=== PATIENT | female | born 1980 ===

== ENCOUNTER 2021-06-26 06:10 | Emergency (ER) | payer OTHER ==
[~2021-06-26] VITALS: Ht 162.6 cm; Wt 72.7 kg
[2021-06-26 06:12] VITALS: BP 131/83
== END 2021-06-26 06:54 | disposition left against medical advice (07) ==
LOC: EMS 06:12
DX: H92.02 Otalgia, left ear (principal); Z53.21 Procedure and treatment not carried out due to patient leaving prior to being seen by health care provider